=== PATIENT | female | born 1985 | race Two or more races ===

== ENCOUNTER 2018-10-18 16:49 | Emergency (ER) | payer BC ==
--- NOTE | 2018-10-18 18:22 | EDM.PDOC ---
ED HPI GENERAL MEDICAL PROBLEM - General Chief Complaint: Respiratory Problem Stated Complaint: FLU Time Seen by Provider: 10/18/18 17:14 Source of Information: Reports: Patient History Limitations: Reports: No Limitations - History of Present Illness INITIAL COMMENTS - FREE TEXT/NARRATIVE: HISTORY AND PHYSICAL: History of present illness: Patient is a 33-year-old female who presents to the ED today with concerns of body aches, chills, ache, sore throat, and cough. Patient states that the symptoms have been severe for the past day or 2. She said it initially started on Sunday with just a sore throat and some nasal congestion and over the past day or 2 has worsened. Patient has been able to eat and drink per her normal but she does have some nausea without vomiting. Patient has not checked temperature but does feels that she's having chills. Patient denies difficulties breathing, feeling short of breath, wheezing, chest pain, abdominal pain, diarrhea, or all other GI, , respiratory, or cardiovascular concerns. Patient states she does have a history of aortic insufficiency when she was a child but denies any recent health history. Review of systems: As per history of present illness and below otherwise all systems reviewed and negative. Past medical history: As per history of present illness and as reviewed below otherwise noncontributory. Surgical history: As per history of present illness and as reviewed below otherwise noncontributory. Social history: See social history for further information Family history: As per history of present illness and as reviewed below otherwise noncontributory. Physical exam: General: Patient is alert, oriented, and in no acute distress. She is tired appearing but lying comfortably on exam table. HEENT: Atraumatic, normocephalic, pupils equal and reactive bilaterally, negative for conjunctival pallor or scleral icterus, mucous membranes moist, TMs normal bilaterally, throat is moderately erythematous without exudate, neck supple, nontender, trachea midline. No drooling or trismus noted. No meningeal signs. No hot potato voice noted. Lungs: Clear to auscultation, breath sounds equal bilaterally, chest nontender. Heart: S1S2, regular rate and rhythm without overt murmur Abdomen: Soft, nondistended, nontender. Negative for masses or hepatosplenomegaly. Negative for costovertebral tenderness. Pelvis: Stable nontender. Genitourinary: Deferred. Rectal: Deferred. Skin: Intact, warm, dry. No lesions or rashes noted. Extremities: Atraumatic, negative for cords or calf pain. Neurovascular unremarkable. Neuro: Awake, alert, oriented. Cranial nerves II through XII unremarkable. Cerebellum unremarkable. Motor and sensory unremarkable throughout. Exam nonfocal. Notes: Supportive care measures were reviewed and discussed. Voices understanding and is agreeable to plan of care. Denies any further questions or concerns at this time. Diagnostics: Influenza, strep Therapeutics: None Prescription: Tamiflu Pen VK Phenergan with codeine Impression: Influenza Strep Pharyngitis Plan: 1. Standard contact precautions (covering mouth while coughing, avoid sharing drinking cups and eating utensils). Please make sure you're doing good handwashing as this is contagious. 2. Please start the Tamiflu today, take as directed. Take the antibiotic for the strep throat. 3. Supportive care measures such as Tylenol and/or ibuprofen for pain and fever management. Phenergan with codeine for moderate to severe pain. Medication may cause drowsiness, so do not drive while taking this medication. Encourage small frequent sips of fluids to prevent dehydration. 4. Follow-up with your director of digital platforms in the next 1-2 days. Return to the ED as needed and as discussed. Definitive disposition and diagnosis as appropriate pending reevaluation and review of above. Throat Pain Score (Numeric/FACES): 7 - Related Data Allergies Allergy/AdvReac Type Severity Reaction Status Date / Time No Known Allergies Allergy Verified 10/18/18 18:25 ED ROS GENERAL - Review of Systems Review Of Systems: ROS reveals no pertinent complaints other than HPI. ED EXAM, GENERAL - Physical Exam Exam: See Below (See dictation) Course - Vital Signs Last Recorded V/S: Last Vital Signs Temp 100.4 F 10/18/18 18:26 Pulse 102 H 10/18/18 18:26 Resp 12 10/18/18 18:26 BP 121/68 10/18/18 18:26 Pulse Ox 95 10/18/18 18:26 Departure - Departure Time of Disposition: 19:22 Disposition: Home, Self-Care 01 Clinical Impression: Strep pharyngitis, Influenza - Discharge Information Referrals: PCP,Unknown [Primary Care Provider] - Forms: ED Department Discharge Additional Instructions: The following information is given to patients seen in the emergency department who are being discharged to home. This information is to outline your options for follow-up care. We provide all patients seen in our emergency department with a follow-up referral. The need for follow-up, as well as the timing and circumstances, are variable depending upon the specifics of your emergency department visit. If you don't have a primary care physician on staff, we will provide you with a referral. We always advise you to contact your personal physician following an emergency department visit to inform them of the circumstance of the visit and for follow-up with them and/or the need for any referrals to a consulting specialist. The emergency department will also refer you to a specialist when appropriate. This referral assures that you have the opportunity for follow-up care with a specialist. All of these measure are taken in an effort to provide you with optimal care, which includes your follow-up. Under all circumstances we always encourage you to contact your private physician who remains a resource for coordinating your care. When calling for follow-up care, please make the office aware that this follow-up is from your recent emergency room visit. If for any reason you are refused follow-up, please contact the [facility] Emergency Department at and asked to speak to the emergency department charge nurse. [facility] [address] [place] [id number] [place] [address] 1. Standard contact precautions (covering mouth while coughing, avoid sharing drinking cups and eating utensils). Please make sure you're doing good handwashing as this is contagious. 2. Please start the Tamiflu today, take as directed. Take the antibiotic for the strep throat. 3. Supportive care measures such as Tylenol and/or ibuprofen for pain and fever management. Phenergan with codeine for moderate to severe pain. Medication may cause drowsiness, so do not drive while taking this medication. Encourage small frequent sips of fluids to prevent dehydration. 4. Follow-up with your director of digital platforms in the next 1-2 days. Return to the ED as needed and as discussed.
== END 2018-10-18 19:35 | disposition home or self-care (01) ==
LOC: MW.ED 16:49
DX: J11.1 Influenza due to unidentified influenza virus with other respiratory manifestations (principal)
CPT/HCPCS: 87804; 87880-QW; 99283